=== PATIENT | female | born 1940 | race Caucasian/White ===

== ENCOUNTER 2022-02-08 15:17 | Emergency (ER) | payer MEDICARE ==
[~2022-02-08] VITALS: Ht 157.4 cm; Wt 68.9 kg
== END 2022-02-08 17:32 | disposition home or self-care (01) ==
LOC: ED 15:17
DX: S00.12XA Contusion of left eyelid and periocular area, initial encounter (principal); W18.39XA Other fall on same level, initial encounter; Y93.89 Activity, other specified; Y92.89 Other specified places as the place of occurrence of the external cause; Y99.8 Other external cause status